=== PATIENT | female | born 1965 | race Caucasian/White ===

== ENCOUNTER 2022-05-23 10:47 | Outpatient (CLI) | payer BC | END 2022-05-23 10:48 | disposition home or self-care (01) | LOC: BICMRI 10:47 | PROVIDERS: ATTEND Registered Nurse | DX: M47.26 Other spondylosis with radiculopathy, lumbar region (principal); M47.817 Spondylosis without myelopathy or radiculopathy, lumbosacral region | CPT/HCPCS: 72148 ==

== ENCOUNTER 2022-09-09 22:31 | Observation (INO) | payer BC ==
[2022-09-09] MEDS ORDERED: Morphine 4 MG/ML VIAL ONE (23:07)
[2022-09-09] MEDS ORDERED: Ondansetron PF 4 MG/2 ML Vial ONE (23:07)
[2022-09-10] MEDS ORDERED: Piperacillin/Tazobactam 3.375 GM in Sodium Chloride 0.9% 100 ML IVPB SCH ×2 (00:45→05:00)
[2022-09-10] MEDS ORDERED: Ondansetron PF 4 MG/2 ML Vial IVP PRN ×2 (00:45→12:54)
[2022-09-10] MEDS ORDERED: Ondansetron ODT 4 MG TAB SL PRN (00:45)
[2022-09-10] MEDS: Morphine 4 MG/ML VIAL SLOW IVP PRN ×2 (01:23→07:50)
[2022-09-10] MEDS: Sodium Chloride 0.9% 1,000 ML IV SCH ×2 (01:35→11:42)
[2022-09-10 04:35] VITALS: BMI 31.7
[2022-09-10] MEDS ORDERED: CEFAZOLIN 2 GM VIAL ONE (11:05)
[2022-09-10] MEDS ORDERED: Sodium Chloride 0.9% 100 ML ONE ×2 (11:05→13:27)
[2022-09-10] MEDS ORDERED: Morphine 4 MG/ML VIAL ONE (11:06)
[2022-09-10] MEDS ORDERED: SUGAMMADEX SODIUM 200 MG/2 ML VIAL ONE (11:42)
[2022-09-10] MEDS ORDERED: fentaNYL PF 100 MCG/2 ML SYRINGE ONE (11:42)
[2022-09-10] MEDS ORDERED: Bupivacaine/Epinephrine 0.25% 30 ML VIAL ONE (11:43)
[2022-09-10] MEDS ORDERED: Dexamethasone 20 MG/5 ML VIAL ONE (12:02)
[2022-09-10] MEDS ORDERED: Glycopyrrolate 0.2 MG/ML 5 ML SYRINGE ONE (12:02)
[2022-09-10] MEDS ORDERED: PROPOFOL 200 MG/20 ML VIAL ONE (12:02)
[2022-09-10] MEDS ORDERED: NEOSTIGMINE 3 MG/3 ML SYR 3 MG/3 ML SYRINGE ONE (12:02)
[2022-09-10] MEDS ORDERED: Rocuronium Bromide 10 MG/ML (10ML VIAL) ONE (12:02)
[2022-09-10] MEDS ORDERED: ePHEDrine 50 MG/ML VIAL ONE (12:02)
[2022-09-10] MEDS ORDERED: Ondansetron PF 4 MG/2 ML Vial ONE (12:02)
[2022-09-10] MEDS ORDERED: Lidocaine 1% PF 5 ML VIAL ONE (12:02)
[2022-09-10] MEDS ORDERED: D5 1/2 NS w/20 mEq KCL 1,000 ML IV SCH (12:54)
[2022-09-10] MEDS ORDERED: Morphine 4 MG/ML VIAL SLOW IVP PRN (12:54)
[2022-09-10] MEDS ORDERED: hydrALAZINE 20 MG/ML VIAL SLOW IVP PRN (12:54)
[2022-09-10] MEDS ORDERED: Promethazine HCl 25 MG/ML VIAL IM PRN (12:54)
[2022-09-10] MEDS ORDERED: Mag-Al 1200 mg/1200 mg/30 ML UDCUP PO PRN (12:54)
[2022-09-10] MEDS ORDERED: Dextrose 5% in Water 1,000 ML IV PRN (12:54)
[2022-09-10] MEDS ORDERED: Dextrose 50% Abboject 50 ML SYRINGE SLOW IVP PRN (12:54)
[2022-09-10] MEDS ORDERED: Calcium Carbonate 500 MG ChewTAB PO PRN (12:54)
[2022-09-10] MEDS ORDERED: Ipratropium/Albuterol 3 ML NEB NEB PRN (12:54)
[2022-09-10] MEDS ORDERED: Fentanyl 100 MCG/2 ML VIAL ONE ×2 (12:59→13:13)
[2022-09-10] MEDS ORDERED: Piperacillin/Tazobactam 3.375 GM VIAL ONE (13:26)
[2022-09-10] MEDS: HYDROcodone/Acetaminophen 10/325 mg Tablet PO PRN ×2 (14:05→17:43)
[2022-09-10 15:48] VITALS: BP 170/68; TEMP 97.4
[2022-09-10] MEDS ORDERED: Famotidine 20 MG TAB PO SCH (21:00)
[2022-09-10] MEDS ORDERED: Famotidine/PF 20 mg/2ml Vial SLOW IVP SCH (21:00)
== END 2022-09-10 17:55 | disposition home or self-care (01) ==
LOC: ERS 22:31 → SURG A 23:43
PROVIDERS: ADMIT Surgery; ATTEND Surgery
PROC: 0FT44ZZ Resection of Gallbladder, Percutaneous Endoscopic Approach (ICD-10-PCS; principal; 2022-09-10)
DX: K80.12 Calculus of gallbladder with acute and chronic cholecystitis without obstruction (principal); M47.9 Spondylosis, unspecified; J44.9 Chronic obstructive pulmonary disease, unspecified; F17.210 Nicotine dependence, cigarettes, uncomplicated; Z91.018 Allergy to other foods
CPT/HCPCS: 88304; 93005; 96374; 96375; 96376; C1889; G0378; J1100; J2270; J2405; J2543; J2704; J3010; J3490; J7050